=== PATIENT | male | born 1955 | race Caucasian/White ===

== ENCOUNTER 2017-07-23 16:34 | Inpatient (IN) | payer OTHER ==
[~2017-07-23] VITALS: Ht 188 cm; Wt 142.0 kg
[~2017-07-23 16:34] MED LIST: CARDIZEM30 MG PO; Cardizem PO; Ecotrin PO; Feosol PO; Januvia PO; LANTUS 3 M100 UNITS1 SC; LIPITOR5 MG PO; LONITEN10 MG PO; LONITEN2.5 MG PO; Labetalol Hcl; Lipitor PO; Normodyne,Trandate PO; PLAVIX75 MG PO; PRINIVIL5 MG PO; Plavix PO; Senokot S,Pericolace PO; Tricor PO; Vicodin,Norco 5/325 PO; Zestril,Prinivil PO; Zyloprim PO; [UNRECOGNIZED DRUG - OTHER] PO; celeBREX PO
[2017-07-23 16:56] LABS: POINT-OF-CARE METER ID UU13113747
[2017-07-23 17:39] LABS: EOSINOPHIL (%) 0.6 % (0-5); EOSINOPHIL COUNT 0.1 K/uL (0-0.3); HEMATOCRIT 51.1 % (38.0-50.0); IMMATURE GRANULOCYTE (%) 0.3 % (0.0-0.7); INSTRUMENT ABS NEUTROPHIL CT 11.3 K/uL; LYMPHOCYTE COUNT 0.9 K/uL (1.0-2.8); MCH 26.2 PG (29.0-34.0); MCHC 30.9 G/DL (30.0-36.0); MCV 84.6 FL (86-99); MEAN PLAT.VOLUME 11.7 uM^3 (9.0-12.4); MONOCYTE (%) 5.3 % (3-12); MONOCYTE COUNT 0.7 K/uL (0-0.8); NEUTROPHIL (%) 86.7 % (45-76); NEUTROPHIL COUNT 11.3 K/uL (1.8-6.4); PLATELET COUNT 192 K/uL (156-360); RBC DIS.WIDTH-CV 15.3 % (11.8-14.6); RBC DIS.WIDTH-SD 46.9 % (39-53); RED BLOOD COUNT 6.04 M/uL (4.00-5.50)
[2017-07-23 17:54] LABS: INTER. NORMALIZED RATIO 1.1
[2017-07-23 17:56] LABS: PTT 38.1 SEC (25-37)
[2017-07-23 18:03] LABS: CHLORIDE 100 mEq/L (99-109); SODIUM 141 mEq/L (136-147)
[2017-07-23 18:05] LABS: GLUCOSE 195 mg/dL (70-99)
[2017-07-23 18:06] LABS: ANION GAP 12 MEQ/L (2-14)
[2017-07-23 18:07] LABS: Estimated Average Glucose 146 mg/dL (70-123); HEMOGLOBIN A1c (GLYCOHEMOGLOB) 6.7 % HGB (Below 5.7)
[2017-07-23 18:09] LABS: GFR ESTIMATE (CALCULATED) 29 mL/min/
[2017-07-23 18:10] LABS: UREA NITROGEN (BUN) 44 mg/dL (9-23)
[2017-07-23] MEDS ORDERED: ZYLOPRIM300 MG PO (18:45)
[2017-07-23] MEDS ORDERED: ECOTRIN325 MG PO (18:46)
[2017-07-23] MEDS ORDERED: JARDIANCE10 MG PO (18:46)
[2017-07-23] MEDS ORDERED: NORCO 5/3251 TABLET PO (18:47)
[2017-07-23] MEDS ORDERED: COZAAR100 MG PO (18:47)
[2017-07-23] MEDS ORDERED: LIPITOR40 MG PO (18:47)
[2017-07-23] MEDS ORDERED: PLAVIX75 MG PO (18:47)
[2017-07-23] MEDS ORDERED: NOVOLOG MI100 UNIT/2 SC (18:48)
[2017-07-23] MEDS ORDERED: NORMODYNE,TRAN200 MG PO (18:48)
[2017-07-23] MEDS ORDERED: JANUVIA100 MG PO (18:48)
[2017-07-23] MEDS ORDERED: LASIX40 MG PO (18:50)
[2017-07-23] MEDS ORDERED: KEFLEX500 MG PO (18:50)
[2017-07-23] MEDS ORDERED: TOPROL XL100 MG PO (18:50)
[2017-07-23 18:59] LABS: HDL CHOLESTEROL 34 MG/DL (Desirable>=40); LDL CHOLESTEROL 66 mg/dL (Desirable<100); NON-HDL CHOLESTEROL 84 mg/dL (Desirable<160); TOTAL CHOLESTEROL 118 mg/dL (Desirable<200); TRIGLYCERIDES 91 MG/DL (Normal: <150)
[2017-07-23 21:55] LABS: POINT-OF-CARE METER ID UU13113747
[2017-07-24 00:54] LABS: TOTAL BILIRUBIN 0.9 mg/dL (0.0-1.0)
[2017-07-24 00:55] LABS: ALKALINE PHOSPHATASE 74 IU/L (3-129)
[2017-07-24 00:57] LABS: DIRECT BILIRUBIN 0.3 mg/dL (0.0-0.3)
[2017-07-24 00:59] VITALS: BP 127/79
[2017-07-24 01:02] LABS: TROP-I INTERPRETATION NEGATIVE; TROPONIN-I < 0.01 ng/mL (0.0-0.30)
== END 2017-07-24 05:30 | disposition short-term general hospital (02) | DRG 65 ==
LOC: EME 16:34 → EDOF 23:00 → ENRESERV 23:02 → 5SOUTH 07-24 00:27
PROVIDERS: Emergency Medicine; Hospitalist
DX: I63.232 Cerebral infarction due to unspecified occlusion or stenosis of left carotid arteries (principal); R29.701 NIHSS score 1; N18.2 Chronic kidney disease, stage 2 (mild); E11.65 Type 2 diabetes mellitus with hyperglycemia; E11.22 Type 2 diabetes mellitus with diabetic chronic kidney disease; E11.51 Type 2 diabetes mellitus with diabetic peripheral angiopathy without gangrene; J44.9 Chronic obstructive pulmonary disease, unspecified; I12.9 Hypertensive chronic kidney disease with stage 1 through stage 4 chronic kidney disease, or unspecified chronic kidney disease; G47.30 Sleep apnea, unspecified; E66.01 Morbid (severe) obesity due to excess calories; M19.90 Unspecified osteoarthritis, unspecified site; E86.0 Dehydration; M10.9 Gout, unspecified; R47.01 Aphasia; N17.9 Acute kidney failure, unspecified; L03.115 Cellulitis of right lower limb; E78.5 Hyperlipidemia, unspecified; Z96.652 Presence of left artificial knee joint; Z95.2 Presence of prosthetic heart valve; Z95.1 Presence of aortocoronary bypass graft; Z87.891 Personal history of nicotine dependence; Z86.73 Personal history of transient ischemic attack (TIA), and cerebral infarction without residual deficits; Z82.49 Family history of ischemic heart disease and other diseases of the circulatory system; Z68.41 Body mass index [BMI] 40.0-44.9, adult; Z79.4 Long term (current) use of insulin
CPT/HCPCS: 70450; 70544; 70551; 80048; 80053; 80061; 80076; 81003; 82948; 83036; 83605; 84484; 85025; 85027; 85610; 85730; 87070; 87075; 87077; 87186; 87205; 93005; 93880; 93970; 99281; 99285; J0696; J1644; J1815; J7030; J7050

== ENCOUNTER 2017-07-27 20:08 | Emergency (ER) | payer OTHER ==
[~2017-07-27] VITALS: Ht 182.9 cm; Wt 131.6 kg
[~2017-07-27 20:08] MED LIST changes: +COZAAR100 MG PO; +ECOTRIN325 MG PO; +JANUVIA100 MG PO; +JARDIANCE10 MG PO; +KEFLEX500 MG PO; +LASIX40 MG PO; +LIPITOR40 MG PO; +NORCO 5/3251 TABLET PO; +NORMODYNE,TRAN200 MG PO; +NOVOLOG MI100 UNIT/2 SC; +TOPROL XL100 MG PO; +ZYLOPRIM300 MG PO
[2017-07-27 20:30] LABS: HEMATOCRIT 51.4 % (38.0-50.0); MCH 26.2 PG (29.0-34.0); MCHC 30.9 G/DL (30.0-36.0); MCV 84.5 FL (86-99); MEAN PLAT.VOLUME 12.1 uM^3 (9.0-12.4); PLATELET COUNT 232 K/uL (156-360); RBC DIS.WIDTH-CV 15.8 % (11.8-14.6); RED BLOOD COUNT 6.08 M/uL (4.00-5.50); WHITE BLOOD COUNT 13.1 K/uL (4.1-10.2)
[2017-07-27 20:33] LABS: INTER. NORMALIZED RATIO 1.1; PROTHROMBIN TIME 12.4 SEC (10.2-12.9)
[2017-07-27 20:44] LABS: CHLORIDE 96 mEq/L (99-109); SODIUM 141 mEq/L (136-147)
[2017-07-27 20:45] LABS: CREATININE 2.5 mg/dL (0.6-1.3); POTASSIUM 3.8 mEq/L (3.7-5.4)
[2017-07-27 20:46] LABS: GLUCOSE 127 mg/dL (70-99)
[2017-07-27 20:48] LABS: ANION GAP 17 MEQ/L (2-14)
[2017-07-27 20:50] LABS: GFR ESTIMATE (CALCULATED) 28 mL/min/
[2017-07-27 20:51] LABS: UREA NITROGEN (BUN) 36 mg/dL (9-23)
[2017-07-27 20:58] LABS: TROP-I INTERPRETATION NEGATIVE; TROPONIN-I < 0.01 ng/mL (0.0-0.30)
[2017-07-27 21:32] LABS: HDL CHOLESTEROL 37 MG/DL (Desirable>=40); LDL CHOLESTEROL 78 mg/dL (Desirable<100); NON-HDL CHOLESTEROL 104 mg/dL (Desirable<160); TOTAL CHOLESTEROL 141 mg/dL (Desirable<200); TRIGLYCERIDES 130 MG/DL (Normal: <150)
[2017-07-27 21:49] VITALS: BP 109/70
== END 2017-07-27 21:30 | disposition short-term general hospital (02) ==
LOC: EME → EDBD 20:08 → EME 21:30
PROVIDERS: Emergency Medicine
DX: I63.9 Cerebral infarction, unspecified (principal); R47.9 Unspecified speech disturbances; R29.810 Facial weakness; G81.91 Hemiplegia, unspecified affecting right dominant side; N28.9 Disorder of kidney and ureter, unspecified; I10 Essential (primary) hypertension; E11.9 Type 2 diabetes mellitus without complications; Z79.4 Long term (current) use of insulin; Z79.02 Long term (current) use of antithrombotics/antiplatelets; Z79.82 Long term (current) use of aspirin; Z87.891 Personal history of nicotine dependence
CPT/HCPCS: 70450; 71010; 80047; 80048; 80061; 84484; 85027; 85610; 85730; 93005; 99281; 99285; J7030

== ENCOUNTER 2017-11-19 18:15 | Inpatient (IN) | payer OTHER ==
[~2017-11-19] VITALS: Ht 188 cm; Wt 128.6 kg
[~2017-11-19 18:15] MED LIST changes: -LIPITOR40 MG PO; +LIPITOR80 MG PO; +LOPRESSOR100 M1 PO; -TOPROL XL100 MG PO
[2017-11-19 19:01] LABS: BASOPHIL (%) 0.2 % (0-1); EOSINOPHIL (%) 0.4 % (0-5); HEMATOCRIT 39.6 % (38.0-50.0); HEMOGLOBIN 12.3 G/DL (12.5-16.6); IMMATURE GRANULOCYTE (%) 0.3 % (0.0-0.7); LYMPHOCYTE (%) 8.5 % (15-42); LYMPHOCYTE COUNT 0.8 K/uL (1.0-2.8); MCH 28.5 PG (29.0-34.0); MCHC 31.1 G/DL (30.0-36.0); MCV 91.7 FL (86-99); MONOCYTE (%) 6.1 % (3-12); MONOCYTE COUNT 0.5 K/uL (0-0.8); NEUTROPHIL (%) 84.5 % (45-76); NEUTROPHIL COUNT 7.5 K/uL (1.8-6.4); PLATELET COUNT 179 K/uL (156-360); RBC DIS.WIDTH-CV 15.5 % (11.8-14.6); RBC DIS.WIDTH-SD 52.5 % (39-53); RED BLOOD COUNT 4.32 M/uL (4.00-5.50); WHITE BLOOD COUNT 8.9 K/uL (4.1-10.2)
[2017-11-19 19:07] LABS: INTER. NORMALIZED RATIO 1.2
[2017-11-19 19:09] LABS: CHLORIDE 106 mEq/L (99-109); POTASSIUM 3.3 mEq/L (3.7-5.4); SODIUM 144 mEq/L (136-147)
[2017-11-19 19:10] LABS: PTT 35.1 SEC (25-37)
[2017-11-19 19:11] LABS: GLUCOSE 166 mg/dL (70-99)
[2017-11-19 19:15] LABS: CREATININE 0.8 mg/dL (0.6-1.3); GFR ESTIMATE (CALCULATED) > 59 mL/min/ (58.99-99999)
[2017-11-19 19:16] LABS: UREA NITROGEN (BUN) 18 mg/dL (9-23)
[2017-11-19 21:12] LABS: APPEARANCE CLOUDY ((CLEAR)); BILIRUBIN NEGATIVE; BLOOD LARGE; COLOR YELLOW ((YELLOW)); GLUCOSE (STRIP) NEGATIVE; KETONES NEGATIVE; LEUKOCYTES LARGE; NITRITE POSITIVE; PROTEIN (STRIP) 100; SPECIFIC GRAVITY 1.028 (1.000-1.030)
[2017-11-19] MEDS ORDERED: FLOMAX0.4 MG PO (21:22)
[2017-11-19] MEDS ORDERED: FLUOXETINE HCL20 MG PO (21:22)
[2017-11-19] MEDS ORDERED: K-DUR20 MEQ PO (21:23)
[2017-11-19] MEDS ORDERED: DESYREL100 MG PO (21:24)
[2017-11-19] MEDS ORDERED: BIOFREEZE GEL TP (21:24)
[2017-11-19] MEDS ORDERED: HYTRIN2 MG PO (21:24)
[2017-11-19] MEDS ORDERED: CHLORHEXIDINE473 ML MM (21:26)
[2017-11-19] MEDS ORDERED: BROMOCRIPTINE2.5 MG PO (21:26)
[2017-11-19] MEDS ORDERED: KEPPRA100 MG/1 M PO (21:26)
[2017-11-19] MEDS ORDERED: MODAFINIL200 MG PO (21:28)
[2017-11-19] MEDS ORDERED: HEPARIN SO5000 UNIT4 SC (21:29)
[2017-11-19] MEDS ORDERED: CLOTRIMAZOLE15 GM TP (21:29)
[2017-11-19] MEDS ORDERED: PRANDIN1 MG PO (21:30)
[2017-11-19] MEDS ORDERED: APRESOLINE25 MG PO ×2 (21:30→21:32)
[2017-11-19] MEDS ORDERED: DULCOLAX10 MG PR (21:31)
[2017-11-19] MEDS ORDERED: PHILLIPS'400 MG/5 M PO (21:32)
[2017-11-19] MEDS ORDERED: MIRALAX119 GM PO (21:32)
[2017-11-19] MEDS ORDERED: TYLENOL REGULA325 MG PO (21:33)
[2017-11-19 22:12] LABS: RED BLOOD CELLS 20-30 /HPF (0-5)
[2017-11-19 22:13] LABS: WHITE BLOOD CELLS TNTC /HPF (0-5)
[2017-11-19 22:14] LABS: BACTERIA 3+ /HPF; CALCIUM OXALATE CRYSTALS RARE /HPF; EPITHELIAL CELLS RARE /HPF; HYALINE CASTS RARE /LPF; MUCUS NONE SEEN /LPF; UCUL ADDED? YES
[2017-11-20] VITALS (7 sets, daily range): BP systolic 117–192; BP diastolic 69–101
[2017-11-20 07:13] LABS: C DIFF TOXIN NEGATIVE (NEGATIVE)
[2017-11-21] VITALS (8 sets, daily range): BP systolic 128–186; BP diastolic 66–100
[2017-11-21 00:41] LABS: HEMATOCRIT 36.4 % (38.0-50.0); HEMOGLOBIN 11.5 G/DL (12.5-16.6); MCH 28.9 PG (29.0-34.0); MCHC 31.6 G/DL (30.0-36.0); MCV 91.5 FL (86-99); PLATELET COUNT 145 K/uL (156-360); RBC DIS.WIDTH-CV 15.4 % (11.8-14.6); RBC DIS.WIDTH-SD 51.8 % (39-53); RED BLOOD COUNT 3.98 M/uL (4.00-5.50); WHITE BLOOD COUNT 5.4 K/uL (4.1-10.2)
[2017-11-21 00:49] LABS: CHLORIDE 108 mEq/L (99-109); SODIUM 145 mEq/L (136-147)
[2017-11-21 00:50] LABS: GLUCOSE 149 mg/dL (70-99)
[2017-11-21 00:54] LABS: CREATININE 0.7 mg/dL (0.6-1.3); GFR ESTIMATE (CALCULATED) > 59 mL/min/ (58.99-99999)
[2017-11-21 00:55] LABS: UREA NITROGEN (BUN) 11 mg/dL (9-23)
[2017-11-21 01:11] LABS: APPEARANCE SL.HAZY ((CLEAR)); BILIRUBIN NEGATIVE; BLOOD MODERATE; COLOR YELLOW ((YELLOW)); GLUCOSE (STRIP) NEGATIVE; KETONES 5; LEUKOCYTES SMALL; NITRITE NEGATIVE; PROTEIN (STRIP) 100; SPECIFIC GRAVITY 1.025 (1.000-1.030)
[2017-11-21 01:19] LABS: BACTERIA RARE /HPF; EPITHELIAL CELLS RARE /HPF; HYALINE CASTS 0-5 /LPF; MUCUS 1+ /LPF; RED BLOOD CELLS TNTC /HPF (0-5); UCUL ADDED? YES; WHITE BLOOD CELLS 40-50 /HPF (0-5)
[2017-11-22] VITALS: BP 161/97
[2017-11-22 03:15] VITALS: BP 166/99
[2017-11-22 06:44] LABS: CHLORIDE 109 MEQ/L (99-109); CREATININE 0.7 MG/DL (0.6-1.3); GFR ESTIMATE (CALCULATED) > 59 mL/min/ (58.99-99999); GLUCOSE 135 mg/dL (70-99); POTASSIUM 3.3 MEQ/L (3.7-5.4); SODIUM 146 MEQ/L (136-147); UREA NITROGEN (BUN) 10 mg/dL (9-23)
[2017-11-22 07:33] VITALS: BP 164/98
[2017-11-22 11:18] VITALS: BP 145/88
[2017-11-22] MEDS ORDERED: BACTRIM,SEPT1 TABLET PO (12:05)
== END 2017-11-22 15:44 | DRG 690 ==
LOC: EME 18:15 → EDOF 21:45 → 2EAST 21:45 → ENRESERV 21:47 → 2EAST 23:34
PROVIDERS: Emergency Medicine; Family Medicine
DX: N39.0 Urinary tract infection, site not specified (principal); B96.89 Other specified bacterial agents as the cause of diseases classified elsewhere; E87.6 Hypokalemia; I12.9 Hypertensive chronic kidney disease with stage 1 through stage 4 chronic kidney disease, or unspecified chronic kidney disease; E11.22 Type 2 diabetes mellitus with diabetic chronic kidney disease; N18.2 Chronic kidney disease, stage 2 (mild); J44.9 Chronic obstructive pulmonary disease, unspecified; E78.5 Hyperlipidemia, unspecified; G47.30 Sleep apnea, unspecified; E66.9 Obesity, unspecified; I65.22 Occlusion and stenosis of left carotid artery; M10.9 Gout, unspecified; Z96.652 Presence of left artificial knee joint; I69.351 Hemiplegia and hemiparesis following cerebral infarction affecting right dominant side; Z68.36 Body mass index [BMI] 36.0-36.9, adult; Z87.891 Personal history of nicotine dependence; Z79.4 Long term (current) use of insulin; Z79.02 Long term (current) use of antithrombotics/antiplatelets
CPT/HCPCS: 70450; 70496; 70498; 71045; 71046; 80047; 80048; 81003; 83605; 85025; 85027; 85610; 85730; 87040; 87077; 87086; 87186; 87493; 93005; 99281; 99285; J0696; J7030

== ENCOUNTER 2018-04-23 01:15 | Emergency (ER) | payer OTHER ==
[~2018-04-23] VITALS: Ht 185.4 cm; Wt 112.0 kg
[~2018-04-23 01:15] MED LIST changes: +APRESOLINE25 MG PO; +BACTRIM,SEPT1 TABLET PO; +BIOFREEZE GEL TP; +BROMOCRIPTINE2.5 MG PO; +CHLORHEXIDINE473 ML MM; +CLOTRIMAZOLE15 GM TP; +DESYREL100 MG PO; +DULCOLAX10 MG PR; +FLOMAX0.4 MG PO; +FLUOXETINE HCL20 MG PO; +HEPARIN SO5000 UNIT4 SC; +HYTRIN2 MG PO; +K-DUR20 MEQ PO; +KEPPRA100 MG/1 M PO; +MIRALAX119 GM PO; +MODAFINIL200 MG PO; +PHILLIPS'400 MG/5 M PO; +PRANDIN1 MG PO; +TYLENOL REGULA325 MG PO
[2018-04-23 02:49] LABS: APPEARANCE CLOUDY ((CLEAR)); BILIRUBIN NEGATIVE; BLOOD MODERATE; COLOR AMBER ((YELLOW)); GLUCOSE (STRIP) 50; KETONES 5; LEUKOCYTES NEGATIVE; NITRITE NEGATIVE; PROTEIN (STRIP) 100; SPECIFIC GRAVITY 1.012 (1.000-1.030); UROBILINOGEN 0.2 MG/DL (0.2-1.0)
[2018-04-23 02:59] LABS: BACTERIA NONE SEEN /HPF; EPITHELIAL CELLS NONE SEEN /HPF; MUCUS NONE SEEN /LPF; RED BLOOD CELLS TNTC /HPF (0-5); UCUL ADDED? YES; WHITE BLOOD CELLS TNTC /HPF (0-5)
[2018-04-23 03:07] LABS: BASOPHIL (%) 0.2 % (0-1); EOSINOPHIL (%) 1.6 % (0-5); EOSINOPHIL COUNT 0.1 K/uL (0-0.3); HEMOGLOBIN 12.7 G/DL (12.5-16.6); IMMATURE GRANULOCYTE (%) 0.2 % (0.0-0.7); LYMPHOCYTE (%) 3.9 % (15-42); LYMPHOCYTE COUNT 0.3 K/uL (1.0-2.8); MCH 30.7 PG (29.0-34.0); MCHC 32.6 G/DL (30.0-36.0); MCV 94.2 FL (86-99); MONOCYTE (%) 2.2 % (3-12); MONOCYTE COUNT 0.1 K/uL (0-0.8); NEUTROPHIL (%) 91.9 % (45-76); NEUTROPHIL COUNT 5.9 K/uL (1.8-6.4); PLATELET COUNT 124 K/uL (156-360); RBC DIS.WIDTH-CV 14.6 % (11.8-14.6); RBC DIS.WIDTH-SD 50.4 % (39-53); RED BLOOD COUNT 4.14 M/uL (4.00-5.50); WHITE BLOOD COUNT 6.5 K/uL (4.1-10.2)
[2018-04-23 03:15] LABS: INTER. NORMALIZED RATIO 1.1
[2018-04-23 03:17] LABS: CHLORIDE 102 mEq/L (99-109); POTASSIUM 3.7 mEq/L (3.7-5.4); PTT 32.4 SEC (25-37); SODIUM 140 mEq/L (136-147)
[2018-04-23 03:18] LABS: GLUCOSE 145 mg/dL (70-99)
[2018-04-23 03:22] LABS: CREATININE 0.8 mg/dL (0.6-1.3); GFR ESTIMATE (CALCULATED) > 59 mL/min/ (58.99-99999)
[2018-04-23 03:23] LABS: UREA NITROGEN (BUN) 12 mg/dL (9-23)
[2018-04-23] MEDS ORDERED: KEFLEX500 MG PO (04:17)
[2018-04-23 07:50] VITALS: BP 100/62
== END 2018-04-23 07:50 ==
LOC: EME → EDBD 01:15 → EME 07:50
PROVIDERS: Emergency Medicine
PROC: 0T9B70Z Drainage of Bladder with Drainage Device, Via Natural or Artificial Opening (ICD-10-PCS; principal; 2018-04-23)
DX: N36.8 Other specified disorders of urethra (principal); N39.0 Urinary tract infection, site not specified; E11.9 Type 2 diabetes mellitus without complications; Z79.4 Long term (current) use of insulin; Z79.01 Long term (current) use of anticoagulants; I10 Essential (primary) hypertension; Z86.73 Personal history of transient ischemic attack (TIA), and cerebral infarction without residual deficits; Z87.891 Personal history of nicotine dependence
CPT/HCPCS: 74176; 80048; 81003; 83605; 85025; 85610; 85730; 87040; 87077; 87086; 87186; 87801; 99281; 99284; J7030

== ENCOUNTER 2018-04-28 07:34 | Observation (INO) | payer OTHER ==
[~2018-04-28] VITALS: Ht 188 cm; Wt 106.2 kg
[~2018-04-28 07:34] MED LIST changes: +APRESOLINE50 MG PO; -DESYREL100 MG PO; +TRAZODONE HCL50 MG PO
[2018-04-28 08:43] LABS: HEMATOCRIT 40.1 % (38.0-50.0); HEMOGLOBIN 12.9 G/DL (12.5-16.6); MCH 30.4 PG (29.0-34.0); MCHC 32.2 G/DL (30.0-36.0); MCV 94.6 FL (86-99); PLATELET COUNT 140 K/uL (156-360); RBC DIS.WIDTH-CV 14.1 % (11.8-14.6); RBC DIS.WIDTH-SD 49.3 % (39-53); RED BLOOD COUNT 4.24 M/uL (4.00-5.50); WHITE BLOOD COUNT 3.2 K/uL (4.1-10.2)
[2018-04-28 08:49] LABS: ALBUMIN 3.8 g/dL (3.2-4.8); CHLORIDE 104 mEq/L (99-109); POTASSIUM 3.9 mEq/L (3.7-5.4)
[2018-04-28 08:50] LABS: SODIUM 145 mEq/L (136-147)
[2018-04-28 08:52] LABS: GLUCOSE 117 mg/dL (70-99); TOTAL PROTEIN 6.8 g/dL (6.4-8.3)
[2018-04-28 08:54] LABS: TOTAL BILIRUBIN 0.4 mg/dL (0.0-1.0)
[2018-04-28 08:55] LABS: ALKALINE PHOSPHATASE 103 IU/L (3-129); CREATININE 0.7 mg/dL (0.6-1.3); GFR ESTIMATE (CALCULATED) > 59 mL/min/ (58.99-99999)
[2018-04-28 08:57] LABS: AST (GOT) 9 IU/L (2-34); UREA NITROGEN (BUN) 8 mg/dL (9-23)
[2018-04-28 08:58] LABS: ALT (GPT) 15 IU/L (3-49)
[2018-04-28 10:11] LABS: APPEARANCE CLEAR ((CLEAR)); BILIRUBIN NEGATIVE; BLOOD SMALL; COLOR YELLOW ((YELLOW)); GLUCOSE (STRIP) NEGATIVE; KETONES NEGATIVE; LEUKOCYTES TRACE; NITRITE NEGATIVE; PROTEIN (STRIP) NEGATIVE; SPECIFIC GRAVITY 1.011 (1.000-1.030); UROBILINOGEN 0.2 MG/DL (0.2-1.0)
[2018-04-28] MEDS ORDERED: MAGNESIUM250 MG PO (10:15)
[2018-04-28] MEDS ORDERED: PROSCAR5 MG PO (10:17)
[2018-04-28] MEDS ORDERED: METHENAMINE MA500 MG PO (10:20)
[2018-04-28 10:22] LABS: BACTERIA NONE SEEN /HPF; EPITHELIAL CELLS NONE SEEN /HPF; MUCUS TRACE /LPF; RED BLOOD CELLS 0-5 /HPF (0-5); UCUL ADDED? YES
[2018-04-28] MEDS ORDERED: CEFTRIAXONE2 G1 IV (10:25)
[2018-04-28 10:26] LABS: TROP-I INTERPRETATION NEGATIVE; TROPONIN-I < 0.01 ng/mL (0.0-0.30)
[2018-04-28] MEDS ORDERED: APRESOLINE25 MG PO (10:26)
[2018-04-28 14:15] LABS: HDL CHOLESTEROL 33 MG/DL (Desirable>=40); LDL CHOLESTEROL 80 mg/dL (Desirable<100); NON-HDL CHOLESTEROL 105 mg/dL (Desirable<160); TOTAL CHOLESTEROL 138 mg/dL (Desirable<200); TRIGLYCERIDES 125 MG/DL (Normal: <150)
[2018-04-28 16:00] VITALS: BP 154/76
[2018-04-29 04:18] VITALS: BP 139/89
[2018-04-29 05:13] LABS: HEMOGLOBIN 12.5 G/DL (12.5-16.6); MCH 29.8 PG (29.0-34.0); MCHC 32.1 G/DL (30.0-36.0); MCV 92.9 FL (86-99); PLATELET COUNT 146 K/uL (156-360); RBC DIS.WIDTH-CV 13.8 % (11.8-14.6); RBC DIS.WIDTH-SD 47.1 % (39-53); WHITE BLOOD COUNT 4.7 K/uL (4.1-10.2)
[2018-04-29 08:00] VITALS: BP 180/90
[2018-04-29 10:20] LABS: HEMOGLOBIN A1c (GLYCOHEMOGLOB) 5.7 % (Below 5.7)
== END 2018-04-29 12:06 ==
LOC: EME 07:34 → EDOF 12:36 → 4SOUTH 12:36 → EDOF 12:36 → ENRESERV 12:52 → 4SOUTH 15:52
PROVIDERS: Hospitalist; Nurse Practitioner Family
DX: R41.82 Altered mental status, unspecified (principal); N39.0 Urinary tract infection, site not specified; E86.0 Dehydration; M19.90 Unspecified osteoarthritis, unspecified site; M10.9 Gout, unspecified; J44.9 Chronic obstructive pulmonary disease, unspecified; G47.30 Sleep apnea, unspecified; E78.5 Hyperlipidemia, unspecified; N18.9 Chronic kidney disease, unspecified; I12.9 Hypertensive chronic kidney disease with stage 1 through stage 4 chronic kidney disease, or unspecified chronic kidney disease; E11.22 Type 2 diabetes mellitus with diabetic chronic kidney disease; Z96.652 Presence of left artificial knee joint; N40.0 Benign prostatic hyperplasia without lower urinary tract symptoms; I69.351 Hemiplegia and hemiparesis following cerebral infarction affecting right dominant side; I69.320 Aphasia following cerebral infarction; I65.22 Occlusion and stenosis of left carotid artery; Z79.82 Long term (current) use of aspirin; Z79.4 Long term (current) use of insulin; R56.9 Unspecified convulsions
CPT/HCPCS: 70450; 70551; 71045; 80053; 80061; 81003; 82948; 83036; 83605; 84484; 85027; 87040; 87086; 93005; 93880; 99281; 99285; G0378; J0696; J1644